=== PATIENT | male | born 1985 | race African-American/Black ===

== ENCOUNTER 2018-04-15 14:17 | Inpatient (IN) | payer OTHER ==
[2018-04-15] MEDS: LEVETIRACETAM 1000 MG (PMX) 100 ML IVPB (15:24)
[2018-04-15 15:27] LABS: ADD MAN DIFF? NO
[2018-04-15 15:31] LABS: ABNORMAL IP MESSAGE 1; BASOPHILS % 0.3 % (0.0-2.0); EOSINOPHILS # 0.1 10^3/ul (0.0-0.5); EOSINOPHILS % 1.7 % (0.0-7.0); HEMATOCRIT 39.9 % (42.0-52.0); HEMOGLOBIN 12.6 g/dl (14.0-18.0); LYMPHOCYTES # 1.2 10^3/ul (0.8-2.9); LYMPHOCYTES % 19.9 % (15.0-51.0); MEAN CORPUSCULAR HEMOGLOBIN 23.2 pg (29.0-33.0); MEAN CORPUSCULAR HGB CONC 31.6 g/dl (32.0-37.0); MEAN CORPUSCULAR VOLUME 73.5 fl (82.0-101.0); MONOCYTE # 0.7 10^3/ul (0.3-0.9); MONOCYTES % 11.8 % (0.0-11.0); NEUTROPHIL # 3.8 10^3/ul (1.6-7.5); NEUTROPHILS % 65.1 % (39.0-77.0); PLATELET COUNT 258 10^3/UL (140-415); POSITIVE DIFF @See below; RED BLOOD COUNT 5.43 10^6/ul (4.70-6.10); RED CELL DISTRIBUTION WIDTH 18.6 % (11.5-14.5)
[2018-04-15 15:31] LABS: WHITE BLOOD COUNT 5.9 10^3/ul (4.8-10.8)
[2018-04-15 15:36] LABS: INR 0.96; PARTIAL THROMBOPLASTIN TIME 27.4 Sec (23.0-35.0); PROTIME 12.9 Sec (11.9-14.9)
[2018-04-15 15:40] LABS: ALANINE AMINOTRANSFERASE 6 IU/L (13-69); ALBUMIN 4.1 g/dl (3.3-4.9); ALBUMIN/GLOBULIN RATIO 1.07; ALKALINE PHOSPHATASE 75 IU/L (42-121); ANION GAP 16 (5-13); ASPARTATE AMINO TRANSFERASE 39 IU/L (15-46); BLOOD UREA NITROGEN 42 mg/dl (7-20); CALCIUM 9.6 mg/dl (8.4-10.2); CARBON DIOXIDE 25 mmol/L (21-31); CHLORIDE 99 mmol/L (97-110); CREATININE 4.67 mg/dl (0.61-1.24); Estimated GFR 15 mL/min (>60); GLUCOSE 103 mg/dl (70-220); POTASSIUM 3.1 mmol/L (3.5-5.1); SODIUM 140 mmol/L (135-144); TOTAL PROTEIN 7.9 g/dl (6.1-8.1)
[2018-04-15 15:44] LABS: ETHANOL < 10.0 mg/dl (0-0)
[2018-04-15 15:52] LABS: TROPONIN-I 0.142 ng/ml (0.000-0.120)
[2018-04-15 16:01] LABS: AMPHETAMINE/METHAMPHETAMINE POSITIVE (NEGATIVE); BARBITURATES NEGATIVE (NEGATIVE); BENZODIAZEPINES NEGATIVE (NEGATIVE); CANNABINOIDS POSITIVE (NEGATIVE); COCAINE NEGATIVE (NEGATIVE); OPIATES NEGATIVE (NEGATIVE)
[2018-04-15] MEDS ORDERED: SOD CHLORIDE 0.9% 1,000 ML IV (18:46)
[2018-04-15] MEDS ORDERED: ACETAMINOPHEN 325 MG TAB PO (19:00)
[2018-04-15] MEDS ORDERED: ZOLPIDEM 5 MG TAB PO (19:00)
[2018-04-15] MEDS ORDERED: DOCUSATE SODIUM 100 MG CAP PO (19:00)
[2018-04-15] MEDS ORDERED: NACL 0.9% 3 ML SYG IV (19:00)
[2018-04-15] MEDS: ONDANSETRON 4 MG INJ IV (19:10)
[2018-04-15] MEDS: morphine 2 MG INJ IV (19:11)
[2018-04-15] MEDS: LORAZEPAM 2 MG INJ IV (19:30)
[2018-04-15] MEDS: POTASSIUM CHLORIDE 30 MEQ in SOD CHLORIDE 0.9% 1,000 ML IV (19:31)
[2018-04-15] MEDS ORDERED: hydrALAzine 20 MG INJ (20:53)
[2018-04-15] MEDS: hydrALAzine 20 MG INJ IV ×2 (20:57→23:47)
[2018-04-16] MEDS: LEVETIRACETAM 1000 MG (PMX) 100 ML IVPB ×3 (00:11→20:35)
[2018-04-16] MEDS: LABETALOL HCL 20MG INJ IV ×4 (00:39→10:37)
[2018-04-16] MEDS: HYDROCODONE/APAP (5/325) TAB PO ×3 (01:47→12:37)
[2018-04-16] MEDS: POTASSIUM CHLORIDE 30 MEQ in SOD CHLORIDE 0.9% 1,000 ML IV ×2 (05:09→15:28)
[2018-04-16 05:16] LABS: ADD MAN DIFF? NO
[2018-04-16 05:30] LABS: WHITE BLOOD COUNT 5.2 10^3/ul (4.8-10.8)
[2018-04-16 05:30] LABS: BASOPHILS % 0.2 % (0.0-2.0); EOSINOPHILS # 0.1 10^3/ul (0.0-0.5); EOSINOPHILS % 1.5 % (0.0-7.0); HEMATOCRIT 36.7 % (42.0-52.0); HEMOGLOBIN 11.8 g/dl (14.0-18.0); LYMPHOCYTES % 19.5 % (15.0-51.0); MEAN CORPUSCULAR HGB CONC 32.2 g/dl (32.0-37.0); MEAN CORPUSCULAR VOLUME 71.7 fl (82.0-101.0); MEAN PLATELET VOLUME 11.4 fl (7.4-10.4); MONOCYTE # 0.7 10^3/ul (0.3-0.9); MONOCYTES % 13.7 % (0.0-11.0); NEUTROPHIL # 3.3 10^3/ul (1.6-7.5); NEUTROPHILS % 64.7 % (39.0-77.0); PLATELET COUNT 247 10^3/UL (140-415); RED BLOOD COUNT 5.12 10^6/ul (4.70-6.10); RED CELL DISTRIBUTION WIDTH 17.7 % (11.5-14.5)
[2018-04-16] MEDS: hydrALAzine 20 MG INJ IV ×3 (05:45→18:38)
[2018-04-16 05:49] LABS: HEMOGLOBIN A1C 5.6 % (0-5.9)
[2018-04-16 06:01] LABS: TROPONIN-I 0.185 ng/ml (0.000-0.120)
[2018-04-16 06:03] LABS: ANION GAP 11 (5-13); BLOOD UREA NITROGEN 35 mg/dl (7-20); CALCIUM 8.9 mg/dl (8.4-10.2); CARBON DIOXIDE 28 mmol/L (21-31); CHLORIDE 102 mmol/L (97-110); CREATININE 3.49 mg/dl (0.61-1.24); Estimated GFR 25 mL/min (>60); GLUCOSE 103 mg/dl (70-220); MAGNESIUM 2.3 mg/dl (1.7-2.5); PHOSPHORUS 3.9 mg/dl (2.5-4.9); SODIUM 141 mmol/L (135-144)
[2018-04-16 06:05] LABS: IRON 25 ug/dl (35-150)
[2018-04-16 06:07] LABS: POTASSIUM 2.7 mmol/L (3.5-5.1)
[2018-04-16 06:15] LABS: % IRON SATURATION 9 % SAT (22-52); TOTAL IRON BINDING CAPACITY 281 ug/dl (241-421)
[2018-04-16] MEDS: POTASSIUM CHLORIDE 100 ML IVPB ×2 (06:25→08:25)
[2018-04-16] MEDS ORDERED: (Nursing Note) XX (07:30)
[2018-04-16] MEDS: AMLODIPINE 5 MG TAB PO (08:24)
[2018-04-16] MEDS: POTASSIUM CHLORIDE 20 MEQ POWDER FOR ORAL SOLN PO (08:24)
[2018-04-16] MEDS: MULTIVITAMINS 10 ML, FOLIC ACID 1 MG in SOD CHLORIDE 0.9% 1,000 ML IVPB (09:22)
[2018-04-16] MEDS: METOPROLOL 25 MG TAB PO ×2 (11:47→20:35)
[2018-04-16] MEDS: CHLORDIAZEPOXIDE 5 MG CAP PO ×2 (12:37→20:35)
[2018-04-16 13:22] LABS: POTASSIUM 3.1 mmol/L (3.5-5.1)
[2018-04-16] MEDS: POTASSIUM CHLORIDE (SR) 20 MEQ TAB PO ×2 (14:15→16:11)
[2018-04-16 20:27] LABS: POTASSIUM 3.2 mmol/L (3.5-5.1)
[2018-04-17] MEDS: POTASSIUM CHLORIDE 30 MEQ in SOD CHLORIDE 0.9% 1,000 ML IV ×2 (01:30→10:53)
[2018-04-17] MEDS: hydrALAzine 20 MG INJ IV ×2 (05:49→13:11)
[2018-04-17 05:59] LABS: ADD MAN DIFF? NO
[2018-04-17 06:02] LABS: ABNORMAL IP MESSAGE 1; BASOPHILS % 0.7 % (0.0-2.0); EOSINOPHILS # 0.1 10^3/ul (0.0-0.5); EOSINOPHILS % 3.1 % (0.0-7.0); HEMATOCRIT 35.6 % (42.0-52.0); HEMOGLOBIN 11.3 g/dl (14.0-18.0); LYMPHOCYTES # 1.2 10^3/ul (0.8-2.9); LYMPHOCYTES % 28.5 % (15.0-51.0); MEAN CORPUSCULAR HGB CONC 31.7 g/dl (32.0-37.0); MEAN CORPUSCULAR VOLUME 72.5 fl (82.0-101.0); MEAN PLATELET VOLUME 10.6 fl (7.4-10.4); MONOCYTE # 0.7 10^3/ul (0.3-0.9); MONOCYTES % 15.3 % (0.0-11.0); NEUTROPHIL # 2.2 10^3/ul (1.6-7.5); NEUTROPHILS % 52.4 % (39.0-77.0); PLATELET COUNT 228 10^3/UL (140-415); POSITIVE DIFF @See below; RED BLOOD COUNT 4.91 10^6/ul (4.70-6.10); RED CELL DISTRIBUTION WIDTH 18.3 % (11.5-14.5)
[2018-04-17 06:02] LABS: WHITE BLOOD COUNT 4.2 10^3/ul (4.8-10.8)
[2018-04-17 06:24] LABS: ANION GAP 7 (5-13); BLOOD UREA NITROGEN 33 mg/dl (7-20); CALCIUM 8.9 mg/dl (8.4-10.2); CARBON DIOXIDE 26 mmol/L (21-31); CHLORIDE 104 mmol/L (97-110); CREATININE 3.48 mg/dl (0.61-1.24); Estimated GFR 25 mL/min (>60); GLUCOSE 87 mg/dl (70-220); MAGNESIUM 2.2 mg/dl (1.7-2.5); POTASSIUM 3.3 mmol/L (3.5-5.1); SODIUM 137 mmol/L (135-144)
[2018-04-17] MEDS: CHLORDIAZEPOXIDE 5 MG CAP PO ×2 (08:00→13:02)
[2018-04-17] MEDS: AMLODIPINE 5 MG TAB PO ×2 (08:00→11:44)
[2018-04-17] MEDS: METOPROLOL 25 MG TAB PO (08:00)
[2018-04-17] MEDS: LEVETIRACETAM 1000 MG (PMX) 100 ML IVPB (08:02)
[2018-04-17] MEDS: INFLUENZA VIRUS VACCINE 0.5 ML (DISPENSING) IM* (09:05)
[2018-04-17] MEDS: MULTIVITAMINS 10 ML, FOLIC ACID 1 MG in SOD CHLORIDE 0.9% 1,000 ML IVPB (09:52)
[2018-04-17] MEDS: POTASSIUM CHLORIDE (SR) 20 MEQ TAB PO (10:20)
== END 2018-04-17 15:25 | disposition home or self-care (01) | DRG 64 ==
LOC: E/R 14:17 → ICU 17:37 → 6WM 04-16 21:39
PROVIDERS: Internal Medicine
DX: I61.1 Nontraumatic intracerebral hemorrhage in hemisphere, cortical (principal); I21.4 Non-ST elevation (NSTEMI) myocardial infarction; Q04.8 Other specified congenital malformations of brain; R56.9 Unspecified convulsions; F10.10 Alcohol abuse, uncomplicated; D50.9 Iron deficiency anemia, unspecified; E87.6 Hypokalemia; I10 Essential (primary) hypertension
CPT/HCPCS: 36415; 70450; 70553; 71045; 80048; 80053; 80307; 82962; 83036; 83540; 83735; 84100; 84132; 84484; 85025; 85610; 85730; 87081; 90686; 93005; 96374; 99291-25

== ENCOUNTER 2018-04-25 12:26 | Emergency (ER) | payer OTHER ==
[2018-04-25 13:15] LABS: ADD MAN DIFF? NO
[2018-04-25 13:19] LABS: WHITE BLOOD COUNT 6.1 10^3/ul (4.8-10.8)
[2018-04-25 13:19] LABS: ABNORMAL IP MESSAGE 1; BASOPHILS % 0.3 % (0.0-2.0); EOSINOPHILS % 0.7 % (0.0-7.0); HEMATOCRIT 40.3 % (42.0-52.0); HEMOGLOBIN 12.8 g/dl (14.0-18.0); LYMPHOCYTES # 1.3 10^3/ul (0.8-2.9); LYMPHOCYTES % 21.2 % (15.0-51.0); MEAN CORPUSCULAR HGB CONC 31.8 g/dl (32.0-37.0); MEAN CORPUSCULAR VOLUME 72.5 fl (82.0-101.0); MEAN PLATELET VOLUME 11.2 fl (7.4-10.4); MONOCYTE # 0.7 10^3/ul (0.3-0.9); MONOCYTES % 11.3 % (0.0-11.0); NEUTROPHILS % 66.3 % (39.0-77.0); PLATELET COUNT 234 10^3/UL (140-415); POSITIVE DIFF @See below; RED BLOOD COUNT 5.56 10^6/ul (4.70-6.10); RED CELL DISTRIBUTION WIDTH 18.2 % (11.5-14.5)
[2018-04-25 13:35] LABS: ALANINE AMINOTRANSFERASE 12 IU/L (13-69); ALBUMIN/GLOBULIN RATIO 1.05; ALKALINE PHOSPHATASE 91 IU/L (42-121); ANION GAP 10 (5-13); ASPARTATE AMINO TRANSFERASE 24 IU/L (15-46); BILIRUBIN,INDIRECT 0.1 mg/dl (0-1.1); BILIRUBIN,TOTAL 0.1 mg/dl (0.2-1.3); BLOOD UREA NITROGEN 27 mg/dl (7-20); CALCIUM 9.4 mg/dl (8.4-10.2); CARBON DIOXIDE 31 mmol/L (21-31); CHLORIDE 98 mmol/L (97-110); CREATININE 3.94 mg/dl (0.61-1.24); Estimated GFR 22 mL/min (>60); GLUCOSE 106 mg/dl (70-220); LIPASE 80 U/L (23-300); SODIUM 139 mmol/L (135-144); TOTAL PROTEIN 7.8 g/dl (6.1-8.1)
[2018-04-25 13:38] LABS: POTASSIUM 2.9 mmol/L (3.5-5.1)
[2018-04-25 13:46] LABS: TROPONIN-I 0.111 ng/ml (0.000-0.120)
[2018-04-25] MEDS: POTASSIUM CHLORIDE (SR) 20 MEQ TAB PO (14:51)
[2018-04-25] MEDS: ACETAMINOPHEN 500 MG TAB PO (14:51)
[2018-04-25 16:07] LABS: TROPONIN-I 0.099 ng/ml (0.000-0.120)
== END 2018-04-25 17:40 | disposition home or self-care (01) ==
LOC: E/R 12:26
DX: R51 Headache (principal); N18.3 Chronic kidney disease, stage 3 (moderate); I50.9 Heart failure, unspecified; I11.0 Hypertensive heart disease with heart failure; I12.9 Hypertensive chronic kidney disease with stage 1 through stage 4 chronic kidney disease, or unspecified chronic kidney disease; Z79.82 Long term (current) use of aspirin
CPT/HCPCS: 80053; 83690; 84484; 85025; 93005; 99284-25

== ENCOUNTER 2018-07-28 12:19 | Emergency (ER) | payer SELFPAY, OTHER | END 2018-07-28 16:50 | disposition left against medical advice (07) | LOC: E/R 12:19 | DX: Z53.21 Procedure and treatment not carried out due to patient leaving prior to being seen by health care provider (principal) | CPT/HCPCS: 93005 ==

== ENCOUNTER 2018-08-13 21:11 | Inpatient (IN) | payer OTHER ==
[2018-08-13 21:54] LABS: ABNORMAL IP MESSAGE 1; HEMATOCRIT 35.8 % (42.0-52.0); HEMOGLOBIN 11.3 g/dl (14.0-18.0); MEAN CORPUSCULAR HEMOGLOBIN 23.5 pg (29.0-33.0); MEAN CORPUSCULAR HGB CONC 31.6 g/dl (32.0-37.0); MEAN CORPUSCULAR VOLUME 74.4 fl (82.0-101.0); MEAN PLATELET VOLUME 11.7 fl (7.4-10.4); PLATELET COUNT 176 10^3/UL (140-415); POSITIVE DIFF @See below; RED BLOOD COUNT 4.81 10^6/ul (4.70-6.10)
[2018-08-13 21:54] LABS: WHITE BLOOD COUNT 4.2 10^3/ul (4.8-10.8)
[2018-08-13] MEDS: morphine 4 MG/ML VIAL IV (21:54)
[2018-08-13] MEDS: NICARDipine HCL 30 MG CAPSULE PO (21:54)
[2018-08-13] MEDS: hydrALAzine 20 MG INJ IV (21:55)
[2018-08-13] MEDS: LEVETIRACETAM 1000 MG (PMX) 100 ML IVPB (21:55)
[2018-08-13] MEDS: ONDANSETRON 4 MG INJ IV ×2 (21:56→23:46)
[2018-08-13] MEDS: SOD CHLORIDE 0.9% 500 ML IV (21:56)
[2018-08-13 21:57] LABS: INR 0.89; PROTIME 12.1 Sec (11.9-14.9); PT RATIO 0.9
[2018-08-13 21:58] LABS: PARTIAL THROMBOPLASTIN TIME 26.1 Sec (23.0-35.0)
[2018-08-13 22:01] LABS: ALANINE AMINOTRANSFERASE 17 IU/L (13-69); ALBUMIN 3.7 g/dl (3.3-4.9); ALBUMIN/GLOBULIN RATIO 1.19; ALKALINE PHOSPHATASE 60 IU/L (42-121); ANION GAP 7 (5-13); ASPARTATE AMINO TRANSFERASE 27 IU/L (15-46); BILIRUBIN,INDIRECT 0.3 mg/dl (0-1.1); BILIRUBIN,TOTAL 0.3 mg/dl (0.2-1.3); BLOOD UREA NITROGEN 39 mg/dl (7-20); CARBON DIOXIDE 30 mmol/L (21-31); CHLORIDE 102 mmol/L (97-110); CREATININE 5.08 mg/dl (0.61-1.24); Estimated GFR 16 mL/min (>60); GLUCOSE 149 mg/dl (70-220); SODIUM 139 mmol/L (135-144); TOTAL PROTEIN 6.8 g/dl (6.1-8.1)
[2018-08-13 22:05] LABS: ADD MAN DIFF? YES
[2018-08-13 22:13] LABS: B-TYPE NATRIURETIC PEPTIDE 25100 PG/ML (0-125)
[2018-08-13 22:20] LABS: TROPONIN-I 0.154 ng/ml (0.000-0.120)
[2018-08-13] MEDS: ASPIRIN 325 MG TAB PO (22:32)
[2018-08-13] MEDS: ENOXAPARIN 100 MG/ML SYG SC (22:33)
[2018-08-13] MEDS: NITROGLYCERIN 2% 1 GM OINT PKT TD (22:33)
[2018-08-13 23:23] LABS: BASOPHILS % (M) 1 % (0-2); GIANT THROMBO% (M) 4 % (0-0); LYMPHOCYTES #M 1.8 10^3/ul (0.8-2.9); LYMPHOCYTES % (M) 45 % (15-51); MONOCYTE #M 0.5 10^3/ul (0.3-0.9); MONOCYTES % (M) 12 % (0-11); PLATELET ESTIMATE NORMAL; POLYCHROMASIA 1+ (0-0); SEGMENTED NEUTROPHILS (M) % 42 % (39-77); SMUDGE%M 40 % (0-0)
[2018-08-13] MEDS: HYDROmorphONE 1 MG/ML SYG IV (23:46)
[2018-08-14] MEDS ORDERED: NITROGLYCERIN (SL) 0.4 MG TAB SL (00:30)
[2018-08-14] MEDS ORDERED: ONDANSETRON 4 MG INJ IV ×2 (00:30)
[2018-08-14] MEDS ORDERED: LORAZEPAM 2 MG INJ IV (00:30)
[2018-08-14] MEDS ORDERED: BISACODYL (EC) 5 MG TAB PO (00:30)
[2018-08-14] MEDS ORDERED: NITROGLYCERIN 2% 1 GM OINT PKT TD (00:30)
[2018-08-14] MEDS ORDERED: DOCUSATE SODIUM 100 MG CAP PO (00:30)
[2018-08-14] MEDS ORDERED: NACL 0.9% 3 ML SYG IV (00:30)
[2018-08-14] MEDS ORDERED: ACETAMINOPHEN 325 MG TAB PO ×2 (00:30)
[2018-08-14] MEDS: POTASSIUM CHLORIDE (SR) 20 MEQ TAB PO ×2 (01:10→09:26)
[2018-08-14] MEDS: hydrALAzine 20 MG INJ IV ×2 (01:10)
[2018-08-14 01:40] LABS: CREATINE KINASE 374 IU/L (23-200)
[2018-08-14 01:53] LABS: CK INDEX 0.4; CK-MB 1.36 ng/ml (0.0-2.4)
[2018-08-14 02:04] LABS: TROPONIN-I 0.159 ng/ml (0.000-0.120)
[2018-08-14 02:13] LABS: ETHANOL < 10.0 mg/dl (0-0)
[2018-08-14] MEDS: SOD CHLORIDE 0.9% 1,000 ML IV ×2 (03:06→16:52)
[2018-08-14] MEDS: morphine 2 MG INJ IV ×2 (05:15→09:29)
[2018-08-14 06:45] LABS: CREATINE KINASE 340 IU/L (23-200)
[2018-08-14 06:52] LABS: CK INDEX 0.4; CK-MB 1.52 ng/ml (0.0-2.4)
[2018-08-14 06:56] LABS: TROPONIN-I 0.166 ng/ml (0.000-0.120)
[2018-08-14 06:59] LABS: IRON 27 ug/dl (35-150)
[2018-08-14 07:08] LABS: % IRON SATURATION 12 % SAT (22-52); TOTAL IRON BINDING CAPACITY 232 ug/dl (241-421)
[2018-08-14 07:23] LABS: VALPROATE < 10 ug/ml (50-100)
[2018-08-14 07:39] LABS: UR RBC 3 /HPF (0-5); UR WBC 1 /HPF (0-5)
[2018-08-14 08:09] LABS: CREATININE,URINE RANDOM 46.95 mg/dl (20-370); PROTEIN/CREAT RATIO 3.98 RATIO
[2018-08-14 08:19] LABS: AMPHETAMINE/METHAMPHETAMINE Negative (NEGATIVE); BARBITURATES Negative (NEGATIVE); BENZODIAZEPINES Negative (NEGATIVE); CANNABINOIDS Positive (NEGATIVE); COCAINE Negative (NEGATIVE); OPIATES Positive (NEGATIVE)
[2018-08-14 08:20] LABS: SODIUM,URINE RANDOM 110 mmol/L (30-90)
[2018-08-14 08:26] LABS: SODIUM,URINE RANDOM 110 mmol/L (30-90)
[2018-08-14 08:26] LABS: CREATININE,URINE RANDOM 46.48 mg/dl (20-370)
[2018-08-14] MEDS ORDERED: FUROSEMIDE 40 MG TAB PO (09:00)
[2018-08-14 09:19] LABS: FERRITIN 21.2 ng/ml (17.9-464.0)
[2018-08-14] MEDS: AMLODIPINE 5 MG TAB PO ×2 (09:25→20:11)
[2018-08-14] MEDS: MULTIVIT/CA CARB/B CMPLX/FA TAB PO (09:25)
[2018-08-14] MEDS: LEVETIRACETAM 500 MG TAB PO ×2 (09:25→20:10)
[2018-08-14] MEDS: POTASSIUM CHLORIDE (SR) 10 MEQ TAB PO (09:26)
[2018-08-14] MEDS: FUROSEMIDE 40 MG INJ IV (09:27)
[2018-08-14 10:54] LABS: CREATINE KINASE 355 IU/L (23-200)
[2018-08-14 11:04] LABS: CK INDEX 0.5; CK-MB 1.84 ng/ml (0.0-2.4)
[2018-08-14 11:12] LABS: TROPONIN-I 0.167 ng/ml (0.000-0.120)
[2018-08-14 11:43] LABS: ADD UMIC YES; UR ASCORBIC ACID NEGATIVE (NEGATIVE); UR BILIRUBIN (Dip) NEGATIVE (NEGATIVE); UR BLOOD (Dip) NEGATIVE (NEGATIVE); UR CLARITY CLEAR (CLEAR); UR COLOR COLORLESS (YELLOW); UR GLUCOSE (Dip) NEGATIVE (NEGATIVE); UR KETONES (Dip) NEGATIVE (NEGATIVE); UR LEUKOCYTE ESTERASE (Dip) NEGATIVE Leu/ul (NEGATIVE); UR NITRITE (Dip) NEGATIVE (NEGATIVE); UR RBC 1 /HPF (0-5); UR SPECIFIC GRAVITY (Dip) 1.009 (1.003-1.030); UR TOTAL PROTEIN (Dip) 2+ mg/dl (NEGATIVE); UR UROBILINOGEN (Dip) NEGATIVE (NEGATIVE); UR WBC 3 /HPF (0-5)
[2018-08-14 13:32] LABS: ANION GAP 7 (5-13); BLOOD UREA NITROGEN 36 mg/dl (7-20); CALCIUM 9.1 mg/dl (8.4-10.2); CARBON DIOXIDE 27 mmol/L (21-31); CHLORIDE 105 mmol/L (97-110); CREATININE 4.57 mg/dl (0.61-1.24); Estimated GFR 18 mL/min (>60); GLUCOSE 98 mg/dl (70-220); POTASSIUM 3.1 mmol/L (3.5-5.1); SODIUM 139 mmol/L (135-144)
[2018-08-14] MEDS: HYDROCODONE/APAP (5/325) TAB PO ×3 (14:40→23:11)
[2018-08-14] MEDS: ATORVASTATIN 40 MG TAB PO (20:10)
[2018-08-14] MEDS ORDERED: LEVETIRACETAM 250 MG TAB PO (21:00)
[2018-08-14] MEDS ORDERED: HYDROCODONE/APAP (5/325) TAB PO (23:30)
[2018-08-15] MEDS: morphine 2 MG INJ IV (04:48)
[2018-08-15 06:12] LABS: ADD MAN DIFF? NO
[2018-08-15 06:19] LABS: ABNORMAL IP MESSAGE 1; BASOPHILS % 0.5 % (0.0-2.0); EOSINOPHILS # 0.1 10^3/ul (0.0-0.5); EOSINOPHILS % 2.3 % (0.0-7.0); HEMATOCRIT 33.8 % (42.0-52.0); HEMOGLOBIN 10.7 g/dl (14.0-18.0); LYMPHOCYTES # 1.4 10^3/ul (0.8-2.9); LYMPHOCYTES % 34.7 % (15.0-51.0); MEAN CORPUSCULAR HEMOGLOBIN 23.4 pg (29.0-33.0); MEAN CORPUSCULAR HGB CONC 31.7 g/dl (32.0-37.0); MEAN CORPUSCULAR VOLUME 73.8 fl (82.0-101.0); MEAN PLATELET VOLUME 12.6 fl (7.4-10.4); MONOCYTE # 0.6 10^3/ul (0.3-0.9); MONOCYTES % 13.9 % (0.0-11.0); NEUTROPHIL # 1.9 10^3/ul (1.6-7.5); NEUTROPHILS % 48.3 % (39.0-77.0); PLATELET COUNT 182 10^3/UL (140-415); POSITIVE DIFF @See below; RED BLOOD COUNT 4.58 10^6/ul (4.70-6.10); RED CELL DISTRIBUTION WIDTH 18.1 % (11.5-14.5)
[2018-08-15] MEDS: HYDROCODONE/APAP (5/325) TAB PO ×2 (06:53→22:25)
[2018-08-15 06:56] LABS: ANION GAP 7 (5-13); BLOOD UREA NITROGEN 30 mg/dl (7-20); CARBON DIOXIDE 29 mmol/L (21-31); CHLORIDE 103 mmol/L (97-110); CREATININE 4.41 mg/dl (0.61-1.24); Estimated GFR 19 mL/min (>60); GLUCOSE 88 mg/dl (70-220); PHOSPHORUS 3.6 mg/dl (2.5-4.9); SODIUM 139 mmol/L (135-144)
[2018-08-15 06:57] LABS: CHOL/HDL RATIO 1.9 RATIO; CHOLESTEROL 167 mg/dl (100-200); HDL CHOLESTEROL 85 mg/dl (28-63); LDL CHOLESTEROL,CALCULATED 68 mg/dl; TRIGLYCERIDES 68 mg/dl (0-149)
[2018-08-15 07:02] LABS: HEMOGLOBIN A1C 5.5 % (0-5.9)
[2018-08-15 07:17] LABS: POTASSIUM 2.9 mmol/L (3.5-5.1)
[2018-08-15] MEDS: POTASSIUM CHLORIDE (SR) 20 MEQ TAB PO (09:20)
[2018-08-15] MEDS: LEVETIRACETAM 500 MG TAB PO ×2 (09:21→21:00)
[2018-08-15] MEDS: MULTIVIT/CA CARB/B CMPLX/FA TAB PO (09:21)
[2018-08-15] MEDS: AMLODIPINE 5 MG TAB PO ×2 (09:21→20:59)
[2018-08-15] MEDS: POTASSIUM CHLORIDE (SR) 10 MEQ TAB PO (09:21)
[2018-08-15] MEDS ORDERED: LOSARTAN 50 MG TAB PO (10:00)
[2018-08-15 10:51] LABS: HAAIG REFLEX REFLEX FILED
[2018-08-15 11:30] LABS: COMPLEMENT C3 106 mg/dl (88-165); COMPLEMENT C4 49 mg/dl (14-44)
[2018-08-15 11:50] LABS: HEPATITIS B SURFACE ANTIGEN NEGATIVE (NEGATIVE)
[2018-08-15 12:07] LABS: HEPATITIS B CORE ANTIBODY NEGATIVE (NEGATIVE); HEPATITIS C VIRAL ANTIBODY NEGATIVE (NEGATIVE)
[2018-08-15 15:17] LABS: CREATININE, RANDOM URINE 34 mg/dL (20-320); MICROALBUMIN 41.6 mg/dL; MICROALBUMIN/CREATININE RATIO 1224 (<30)
[2018-08-15 17:48] LABS: RHEUMATOID FACTOR NEGATIVE (NEGATIVE)
[2018-08-15] MEDS: ATORVASTATIN 40 MG TAB PO (20:58)
[2018-08-16 06:48] LABS: ADD MAN DIFF? NO
[2018-08-16 06:50] LABS: ABNORMAL IP MESSAGE 1; BASOPHILS % 0.6 % (0.0-2.0); EOSINOPHILS # 0.1 10^3/ul (0.0-0.5); EOSINOPHILS % 2.3 % (0.0-7.0); HEMATOCRIT 33.7 % (42.0-52.0); HEMOGLOBIN 10.8 g/dl (14.0-18.0); LYMPHOCYTES # 1.2 10^3/ul (0.8-2.9); LYMPHOCYTES % 38.6 % (15.0-51.0); MEAN CORPUSCULAR HEMOGLOBIN 23.7 pg (29.0-33.0); MEAN CORPUSCULAR VOLUME 73.9 fl (82.0-101.0); MEAN PLATELET VOLUME 11.2 fl (7.4-10.4); MONOCYTE # 0.5 10^3/ul (0.3-0.9); MONOCYTES % 15.3 % (0.0-11.0); NEUTROPHIL # 1.3 10^3/ul (1.6-7.5); NEUTROPHILS % 42.9 % (39.0-77.0); PLATELET COUNT 166 10^3/UL (140-415); POSITIVE DIFF @See below; RED BLOOD COUNT 4.56 10^6/ul (4.70-6.10)
[2018-08-16 06:50] LABS: WHITE BLOOD COUNT 3.1 10^3/ul (4.8-10.8)
[2018-08-16 07:16] LABS: ANION GAP 5 (5-13); BLOOD UREA NITROGEN 33 mg/dl (7-20); CALCIUM 8.8 mg/dl (8.4-10.2); CARBON DIOXIDE 28 mmol/L (21-31); CHLORIDE 103 mmol/L (97-110); CREATININE 4.49 mg/dl (0.61-1.24); Estimated GFR 19 mL/min (>60); GLUCOSE 106 mg/dl (70-220); MAGNESIUM 2.1 mg/dl (1.7-2.5); PHOSPHORUS 3.8 mg/dl (2.5-4.9); POTASSIUM 3.3 mmol/L (3.5-5.1); SODIUM 136 mmol/L (135-144)
[2018-08-16] MEDS: LEVETIRACETAM 500 MG TAB PO (08:08)
[2018-08-16] MEDS: POTASSIUM CHLORIDE (SR) 10 MEQ TAB PO (08:09)
[2018-08-16] MEDS: MULTIVIT/CA CARB/B CMPLX/FA TAB PO (08:09)
[2018-08-16] MEDS: AMLODIPINE 5 MG TAB PO (08:09)
[2018-08-16] MEDS: SPIRONOLACTONE 25 MG TAB PO (09:06)
[2018-08-16 11:21] LABS: MYELOPEROXIDASE ANTIBODY <1.0 AI; PROTEINASE-3 ANTIBODY <1.0 AI
[2018-08-16 12:56] LABS: LEVETIRACETAM 11.1 mcg/mL
[2018-08-16 13:42] LABS: ANA SCREEN NEGATIVE (NEGATIVE)
[2018-08-16 14:31] LABS: ANCA SCREEN NEGATIVE (NEGATIVE)
[2018-08-16 15:16] LABS: ALBUMIN 3.1 g/dL (3.8-4.8); ALPHA-1-GLOBULINS 0.4 g/dL (0.2-0.3); ALPHA-2-GLOBULINS 0.9 g/dL (0.5-0.9); BETA 2 GLOBULINS 0.4 g/dL (0.2-0.5); BETA GLOBULINS 0.3 g/dL (0.4-0.6)
[2018-08-18 15:26] LABS: CREATININE, RANDOM URINE 94 mg/dL (20-320); PROTEIN/CREATININE RATIO 2989 mg/g creat (22-128)
[2018-08-19 13:27] LABS: ALDOSTERONE 16 ng/dL
[2018-08-19 18:56] LABS: RENIN, PLASMA 1.26 ng/mL/h (0.25-5.82)
[2018-08-20 21:33] LABS: ANTI-DNA (DOUBLE STRANDED) 133 U/mL (< 301)
== END 2018-08-16 12:15 | disposition home or self-care (01) | DRG 281 ==
LOC: E/R 21:11 → TEL 23:53
PROVIDERS: Family Medicine
DX: I13.0 Hypertensive heart and chronic kidney disease with heart failure and stage 1 through stage 4 chronic kidney disease, or unspecified chronic kidney disease (principal); I21.A1 Myocardial infarction type 2; N17.9 Acute kidney failure, unspecified; R56.9 Unspecified convulsions; I16.0 Hypertensive urgency; N18.9 Chronic kidney disease, unspecified; I50.9 Heart failure, unspecified
CPT/HCPCS: 36415; 70450; 71045; 76775; 80048; 80053; 80061; 80164; 80177; 80307; 81001; 81003; 82043; 82088; 82550; 82553; 82570; 82595; 82728; 82962; 83036; 83540; 83735; 83880; 84100; 84155; 84156; 84165; 84166; 84244; 84300; 84443; 84484; 85025; 85610; 85730; 86021; 86038; 86160; 86226; 86320; 86325; 86430; 86704; 86709; 86803; 87340; 93005; 93306; 96372; 96374; 96375; 97161; 97166; 99285-25

== ENCOUNTER 2018-08-18 10:30 | Emergency (ER) | payer OTHER ==
[2018-08-18 12:19] LABS: ADD MAN DIFF? NO
[2018-08-18 12:24] LABS: WHITE BLOOD COUNT 3.9 10^3/ul (4.8-10.8)
[2018-08-18 12:24] LABS: ABNORMAL IP MESSAGE 1; BASOPHILS % 0.5 % (0.0-2.0); EOSINOPHILS # 0.1 10^3/ul (0.0-0.5); EOSINOPHILS % 1.6 % (0.0-7.0); HEMATOCRIT 38.1 % (42.0-52.0); LYMPHOCYTES % 24.8 % (15.0-51.0); MEAN CORPUSCULAR HEMOGLOBIN 23.5 pg (29.0-33.0); MEAN CORPUSCULAR HGB CONC 31.5 g/dl (32.0-37.0); MEAN CORPUSCULAR VOLUME 74.6 fl (82.0-101.0); MEAN PLATELET VOLUME 11.1 fl (7.4-10.4); MONOCYTE # 0.8 10^3/ul (0.3-0.9); MONOCYTES % 20.9 % (0.0-11.0); NEUTROPHILS % 51.9 % (39.0-77.0); PLATELET COUNT 167 10^3/UL (140-415); POSITIVE DIFF @See below; RED BLOOD COUNT 5.11 10^6/ul (4.70-6.10); RED CELL DISTRIBUTION WIDTH 17.7 % (11.5-14.5)
[2018-08-18] MEDS: ENALAPRILAT 1.25 MG INJ IV (12:52)
[2018-08-18] MEDS: FUROSEMIDE 40 MG INJ IV (12:52)
[2018-08-18 12:55] LABS: ALANINE AMINOTRANSFERASE 15 IU/L (13-69); ALBUMIN 4.2 g/dl (3.3-4.9); ALBUMIN/GLOBULIN RATIO 1.07; ALKALINE PHOSPHATASE 72 IU/L (42-121); ANION GAP 10 (5-13); ASPARTATE AMINO TRANSFERASE 22 IU/L (15-46); BILIRUBIN,INDIRECT 0.3 mg/dl (0-1.1); BILIRUBIN,TOTAL 0.3 mg/dl (0.2-1.3); BLOOD UREA NITROGEN 34 mg/dl (7-20); CALCIUM 9.8 mg/dl (8.4-10.2); CARBON DIOXIDE 28 mmol/L (21-31); CHLORIDE 104 mmol/L (97-110); CREATININE 5.03 mg/dl (0.61-1.24); Estimated GFR 16 mL/min (>60); GLUCOSE 91 mg/dl (70-220); LIPASE 59 U/L (23-300); POTASSIUM 3.8 mmol/L (3.5-5.1); SODIUM 142 mmol/L (135-144); TOTAL PROTEIN 8.1 g/dl (6.1-8.1)
[2018-08-18 13:05] LABS: B-TYPE NATRIURETIC PEPTIDE 9900 PG/ML (0-125); TROPONIN-I 0.102 ng/ml (0.000-0.120)
[2018-08-18] MEDS: NITROGLYCERIN (SL) 0.4 MG TAB SL (13:50)
== END 2018-08-18 15:05 | disposition home or self-care (01) ==
LOC: E/R 10:30
DX: I50.43 Acute on chronic combined systolic (congestive) and diastolic (congestive) heart failure (principal); I12.9 Hypertensive chronic kidney disease with stage 1 through stage 4 chronic kidney disease, or unspecified chronic kidney disease; N18.9 Chronic kidney disease, unspecified; Z87.891 Personal history of nicotine dependence
CPT/HCPCS: 36415; 71045; 80053; 83690; 83880; 84484; 85025; 93005; 96374; 96375; 99285-25

== ENCOUNTER 2018-08-21 00:11 | Emergency (ER) | payer OTHER ==
[2018-08-21] MEDS: ACETAMINOPHEN 500 MG TAB PO (03:07)
[2018-08-21] MEDS: IPRATROPIUM (NEB) 0.5 MG/2.5 ML AMP NEB (03:10)
[2018-08-21] MEDS: ALBUTEROL 0.083% (NEB) 2.5 MG/3 ML AMP NEB (03:11)
[2018-08-21] MEDS ORDERED: HYDROCODONE/APAP (5/325) TAB PO (04:00)
== END 2018-08-21 04:15 | disposition home or self-care (01) ==
LOC: FTE 00:11
DX: J40 Bronchitis, not specified as acute or chronic (principal); I13.0 Hypertensive heart and chronic kidney disease with heart failure and stage 1 through stage 4 chronic kidney disease, or unspecified chronic kidney disease; I50.9 Heart failure, unspecified; N18.9 Chronic kidney disease, unspecified; F17.210 Nicotine dependence, cigarettes, uncomplicated
CPT/HCPCS: 94664; 99284-25

== ENCOUNTER 2018-11-12 15:52 | Inpatient (IN) | payer OTHER ==
[2018-11-12 16:21] LABS: ADD MAN DIFF? NO
[2018-11-12 16:36] LABS: WHITE BLOOD COUNT 4.4 10^3/ul (4.8-10.8)
[2018-11-12 16:36] LABS: BASOPHILS % 0.5 % (0.0-2.0); EOSINOPHILS # 0.1 10^3/ul (0.0-0.5); EOSINOPHILS % 1.8 % (0.0-7.0); HEMATOCRIT 35.2 % (42.0-52.0); HEMOGLOBIN 11.4 g/dl (14.0-18.0); LYMPHOCYTES # 1.4 10^3/ul (0.8-2.9); LYMPHOCYTES % 32.4 % (15.0-51.0); MEAN CORPUSCULAR HEMOGLOBIN 25.4 pg (29.0-33.0); MEAN CORPUSCULAR HGB CONC 32.4 g/dl (32.0-37.0); MEAN CORPUSCULAR VOLUME 78.6 fl (82.0-101.0); MEAN PLATELET VOLUME 11.7 fl (7.4-10.4); MONOCYTE # 0.7 10^3/ul (0.3-0.9); MONOCYTES % 14.9 % (0.0-11.0); NEUTROPHIL # 2.2 10^3/ul (1.6-7.5); NEUTROPHILS % 50.2 % (39.0-77.0); PLATELET COUNT 191 10^3/UL (140-415); RED BLOOD COUNT 4.48 10^6/ul (4.70-6.10)
[2018-11-12 16:44] LABS: ANION GAP 6 (5-13); BLOOD UREA NITROGEN 41 mg/dl (7-20); CALCIUM 8.8 mg/dl (8.4-10.2); CARBON DIOXIDE 29 mmol/L (21-31); CHLORIDE 103 mmol/L (97-110); Estimated GFR 16 mL/min (>60); GLUCOSE 94 mg/dl (70-220); POTASSIUM 3.2 mmol/L (3.5-5.1); SODIUM 138 mmol/L (135-144)
[2018-11-12] MEDS: ASPIRIN 81 MG TAB PO (16:45)
[2018-11-12] MEDS: NITROGLYCERIN (SL) 0.4 MG TAB SL (16:45)
[2018-11-12] MEDS: SOD CHLORIDE 0.9% 500 ML IV (16:46)
[2018-11-12] MEDS: NICARDipine HCL 30 MG CAPSULE PO (16:46)
[2018-11-12 17:01] LABS: B-TYPE NATRIURETIC PEPTIDE 17700 PG/ML (0-125)
[2018-11-12 17:03] LABS: TROPONIN-I 0.124 ng/ml (0.000-0.120)
[2018-11-12] MEDS: FUROSEMIDE 40 MG INJ IV (17:12)
[2018-11-12] MEDS: niCARdipine-NS 0.1MG/ML DRIP 200 ML IV (17:23)
[2018-11-12] MEDS ORDERED: ALBUTEROL/IPRATROPIUM (NEB) 3 ML AMP HHN (18:30)
[2018-11-12] MEDS ORDERED: LORAZEPAM 2 MG INJ IV (18:30)
[2018-11-12] MEDS ORDERED: ONDANSETRON 4 MG INJ IV (18:30)
[2018-11-12] MEDS ORDERED: NACL 0.9% 3 ML SYG IV (18:30)
[2018-11-12] MEDS ORDERED: MAGNESIUM HYDROXIDE 30ML CUP PO (18:30)
[2018-11-12] MEDS ORDERED: DOCUSATE SODIUM 100 MG CAP PO (18:30)
[2018-11-12] MEDS ORDERED: NITROGLYCERIN (SL) 0.4 MG TAB SL (18:30)
[2018-11-12] MEDS ORDERED: IBUPROFEN 600 MG TAB (18:33)
[2018-11-12] MEDS: IBUPROFEN 600 MG TAB PO (18:51)
[2018-11-12] MEDS: SOD CHLORIDE 0.45% 1,000 ML IV (19:24)
[2018-11-12 19:50] LABS: CREATINE KINASE 270 IU/L (23-200)
[2018-11-12 20:03] LABS: CK INDEX 0.5; CK-MB 1.44 ng/ml (0.0-2.4); TROPONIN-I 0.131 ng/ml (0.000-0.120)
[2018-11-12 20:07] LABS: FREE T4 (FREE THYROXINE) 1.84 ng/dl (0.79-2.35)
[2018-11-12] MEDS: ENOXAPARIN 80 MG/0.8 ML SYG SC (20:50)
[2018-11-12] MEDS: LEVETIRACETAM 500 MG TAB PO (20:51)
[2018-11-13] MEDS: POTASSIUM CHLORIDE 100 ML IVPB ×2 (01:33→05:02)
[2018-11-13] MEDS: HYDROCODONE/APAP (5/325) TAB PO ×2 (01:40→21:50)
[2018-11-13 02:23] LABS: CREATINE KINASE 275 IU/L (23-200)
[2018-11-13 02:36] LABS: CK INDEX 0.8
[2018-11-13 02:37] LABS: TROPONIN-I 0.179 ng/ml (0.000-0.120)
[2018-11-13] MEDS: morphine 2 MG INJ IV ×2 (05:08→23:14)
[2018-11-13] MEDS: ASPIRIN (EC) 325 MG TAB PO (08:14)
[2018-11-13] MEDS: MULTIVIT/CA CARB/B CMPLX/FA TAB PO (08:14)
[2018-11-13] MEDS: LEVETIRACETAM 500 MG TAB PO ×2 (08:14→21:42)
[2018-11-13] MEDS: hydrALAzine 20 MG INJ IV ×2 (08:15→19:18)
[2018-11-13 08:59] LABS: ADD MAN DIFF? NO
[2018-11-13] MEDS: NICOTINE (14 MG/24 HR) PATCH TRANSDERM (09:00)
[2018-11-13 09:09] LABS: BASOPHILS % 0.5 % (0.0-2.0); EOSINOPHILS # 0.1 10^3/ul (0.0-0.5); EOSINOPHILS % 1.8 % (0.0-7.0); LYMPHOCYTES # 1.6 10^3/ul (0.8-2.9); LYMPHOCYTES % 40.4 % (15.0-51.0); MEAN CORPUSCULAR HEMOGLOBIN 24.7 pg (29.0-33.0); MEAN CORPUSCULAR HGB CONC 31.4 g/dl (32.0-37.0); MEAN CORPUSCULAR VOLUME 78.5 fl (82.0-101.0); MEAN PLATELET VOLUME 11.9 fl (7.4-10.4); MONOCYTE # 0.6 10^3/ul (0.3-0.9); MONOCYTES % 14.6 % (0.0-11.0); NEUTROPHIL # 1.6 10^3/ul (1.6-7.5); NEUTROPHILS % 42.4 % (39.0-77.0); PLATELET COUNT 196 10^3/UL (140-415); RED BLOOD COUNT 4.46 10^6/ul (4.70-6.10); RED CELL DISTRIBUTION WIDTH 15.9 % (11.5-14.5)
[2018-11-13 09:09] LABS: WHITE BLOOD COUNT 3.8 10^3/ul (4.8-10.8)
[2018-11-13 09:29] LABS: HEMOGLOBIN A1C 5.2 % (0-5.9)
[2018-11-13 09:52] LABS: CHOLESTEROL 171 mg/dl (100-200)
[2018-11-13 09:52] LABS: CHOL/HDL RATIO 2.5 RATIO; HDL CHOLESTEROL 66 mg/dl (28-63); LDL CHOLESTEROL,CALCULATED 90 mg/dl; TRIGLYCERIDES 73 mg/dl (0-149)
[2018-11-13 09:54] LABS: ANION GAP 7 (5-13); BLOOD UREA NITROGEN 42 mg/dl (7-20); CALCIUM 8.9 mg/dl (8.4-10.2); CARBON DIOXIDE 28 mmol/L (21-31); CHLORIDE 103 mmol/L (97-110); CREATININE 4.75 mg/dl (0.61-1.24); Estimated GFR 17 mL/min (>60); GLUCOSE 72 mg/dl (70-220); PHOSPHORUS 4.4 mg/dl (2.5-4.9); POTASSIUM 3.5 mmol/L (3.5-5.1); SODIUM 138 mmol/L (135-144)
[2018-11-13] MEDS: ENOXAPARIN 80 MG/0.8 ML SYG SC (22:21)
[2018-11-13] MEDS: SOD CHLORIDE 0.45% 1,000 ML IV ×2 (23:59)
[2018-11-14] MEDS: SOD CHLORIDE 0.9% 250 ML IV (00:45)
[2018-11-14] MEDS: hydrALAzine 20 MG INJ IV ×2 (02:09→08:38)
[2018-11-14] MEDS: morphine 2 MG INJ IV (06:36)
[2018-11-14 08:10] LABS: ADD MAN DIFF? NO
[2018-11-14 08:18] LABS: WHITE BLOOD COUNT 4.3 10^3/ul (4.8-10.8)
[2018-11-14 08:18] LABS: ABNORMAL IP MESSAGE 1; BASOPHILS % 0.5 % (0.0-2.0); EOSINOPHILS # 0.1 10^3/ul (0.0-0.5); EOSINOPHILS % 1.4 % (0.0-7.0); HEMATOCRIT 35.5 % (42.0-52.0); HEMOGLOBIN 11.2 g/dl (14.0-18.0); LYMPHOCYTES # 1.4 10^3/ul (0.8-2.9); LYMPHOCYTES % 33.1 % (15.0-51.0); MEAN CORPUSCULAR HEMOGLOBIN 24.6 pg (29.0-33.0); MEAN CORPUSCULAR HGB CONC 31.5 g/dl (32.0-37.0); MEAN PLATELET VOLUME 11.8 fl (7.4-10.4); MONOCYTE # 0.6 10^3/ul (0.3-0.9); MONOCYTES % 14.2 % (0.0-11.0); NEUTROPHIL # 2.2 10^3/ul (1.6-7.5); NEUTROPHILS % 50.6 % (39.0-77.0); PLATELET COUNT 181 10^3/UL (140-415); POSITIVE DIFF @See below; RED BLOOD COUNT 4.55 10^6/ul (4.70-6.10); RED CELL DISTRIBUTION WIDTH 15.8 % (11.5-14.5)
[2018-11-14] MEDS: MULTIVIT/CA CARB/B CMPLX/FA TAB PO (08:38)
[2018-11-14] MEDS: ASPIRIN (EC) 325 MG TAB PO (08:38)
[2018-11-14] MEDS: LEVETIRACETAM 500 MG TAB PO ×2 (08:38→20:11)
[2018-11-14] MEDS: NICOTINE (14 MG/24 HR) PATCH TRANSDERM (08:41)
[2018-11-14] MEDS: HYDROCODONE/APAP (5/325) TAB PO ×2 (08:46→21:21)
[2018-11-14] MEDS: SOD CHLORIDE 0.45% 1,000 ML IV (08:47)
[2018-11-14 08:50] LABS: CHOL/HDL RATIO 2.8 RATIO; CREATINE KINASE 177 IU/L (23-200); HDL CHOLESTEROL 61 mg/dl (28-63); LDL CHOLESTEROL,CALCULATED 91 mg/dl; TRIGLYCERIDES 96 mg/dl (0-149)
[2018-11-14 08:50] LABS: CHOLESTEROL 171 mg/dl (100-200)
[2018-11-14 08:58] LABS: ANION GAP 9 (5-13); BLOOD UREA NITROGEN 46 mg/dl (7-20); CALCIUM 8.9 mg/dl (8.4-10.2); CARBON DIOXIDE 27 mmol/L (21-31); CHLORIDE 102 mmol/L (97-110); Estimated GFR 18 mL/min (>60); GLUCOSE 76 mg/dl (70-220); SODIUM 138 mmol/L (135-144)
[2018-11-14 09:00] LABS: CK INDEX 0.7; CK-MB 1.29 ng/ml (0.0-2.4)
[2018-11-14 09:01] LABS: TROPONIN-I 0.136 ng/ml (0.000-0.120)
[2018-11-14] MEDS: POTASSIUM CHLORIDE (SR) 20 MEQ TAB PO (09:46)
[2018-11-14 13:48] LABS: ADD UMIC YES; UR ASCORBIC ACID NEGATIVE (NEGATIVE); UR BILIRUBIN (Dip) NEGATIVE (NEGATIVE); UR BLOOD (Dip) NEGATIVE (NEGATIVE); UR CLARITY CLEAR (CLEAR); UR COLOR COLORLESS (YELLOW); UR GLUCOSE (Dip) NEGATIVE (NEGATIVE); UR KETONES (Dip) NEGATIVE (NEGATIVE); UR LEUKOCYTE ESTERASE (Dip) NEGATIVE Leu/ul (NEGATIVE); UR NITRITE (Dip) NEGATIVE (NEGATIVE); UR RBC 3 /HPF (0-5); UR SPECIFIC GRAVITY (Dip) 1.006 (1.003-1.030); UR TOTAL PROTEIN (Dip) 2+ mg/dl (NEGATIVE); UR UROBILINOGEN (Dip) NEGATIVE (NEGATIVE); UR WBC 0 /HPF (0-5)
[2018-11-14 13:54] LABS: CREATININE,URINE RANDOM 38.68 mg/dl (20-370); PROTEIN/CREAT RATIO 4.26 RATIO
[2018-11-14 16:43] LABS: POTASSIUM 3.5 mmol/L (3.5-5.1)
[2018-11-14] MEDS: ENOXAPARIN 80 MG/0.8 ML SYG SC (20:37)
[2018-11-15] MEDS: hydrALAzine 20 MG INJ IV ×2 (04:27→09:58)
[2018-11-15] MEDS: HYDROCODONE/APAP (5/325) TAB PO ×2 (04:30→21:12)
[2018-11-15 07:33] LABS: ADD MAN DIFF? NO
[2018-11-15 07:42] LABS: WHITE BLOOD COUNT 3.3 10^3/ul (4.8-10.8)
[2018-11-15 07:42] LABS: BASOPHILS % 0.6 % (0.0-2.0); EOSINOPHILS # 0.1 10^3/ul (0.0-0.5); EOSINOPHILS % 2.7 % (0.0-7.0); HEMATOCRIT 34.2 % (42.0-52.0); HEMOGLOBIN 10.6 g/dl (14.0-18.0); LYMPHOCYTES # 1.3 10^3/ul (0.8-2.9); LYMPHOCYTES % 40.3 % (15.0-51.0); MEAN CORPUSCULAR HEMOGLOBIN 24.4 pg (29.0-33.0); MEAN CORPUSCULAR VOLUME 78.6 fl (82.0-101.0); MEAN PLATELET VOLUME 12.1 fl (7.4-10.4); MONOCYTE # 0.6 10^3/ul (0.3-0.9); MONOCYTES % 18.5 % (0.0-11.0); NEUTROPHIL # 1.3 10^3/ul (1.6-7.5); NEUTROPHILS % 37.9 % (39.0-77.0); PLATELET COUNT 165 10^3/UL (140-415); RED BLOOD COUNT 4.35 10^6/ul (4.70-6.10)
[2018-11-15 08:04] LABS: CREATINE KINASE 144 IU/L (23-200)
[2018-11-15 08:14] LABS: CK INDEX 0.9; CK-MB 1.25 ng/ml (0.0-2.4); TROPONIN-I 0.108 ng/ml (0.000-0.120)
[2018-11-15 08:15] LABS: ANION GAP 8 (5-13); BLOOD UREA NITROGEN 50 mg/dl (7-20); CALCIUM 8.8 mg/dl (8.4-10.2); CARBON DIOXIDE 27 mmol/L (21-31); CHLORIDE 102 mmol/L (97-110); Estimated GFR 16 mL/min (>60); GLUCOSE 73 mg/dl (70-220); POTASSIUM 3.4 mmol/L (3.5-5.1); SODIUM 137 mmol/L (135-144)
[2018-11-15] MEDS: NICOTINE (14 MG/24 HR) PATCH TRANSDERM (09:00)
[2018-11-15] MEDS: ASPIRIN (EC) 325 MG TAB PO (09:55)
[2018-11-15] MEDS: MULTIVIT/CA CARB/B CMPLX/FA TAB PO (09:55)
[2018-11-15] MEDS: LEVETIRACETAM 500 MG TAB PO ×2 (09:55→21:08)
[2018-11-15] MEDS: POTASSIUM CHLORIDE (SR) 20 MEQ TAB PO (10:31)
[2018-11-15] MEDS: AMLODIPINE 5 MG TAB PO ×2 (10:31→21:09)
[2018-11-15] MEDS: ENOXAPARIN 80 MG/0.8 ML SYG SC (21:34)
[2018-11-15] MEDS: morphine 2 MG INJ IV (23:00)
[2018-11-16] MEDS: HYDROCODONE/APAP (5/325) TAB PO (03:10)
[2018-11-16] MEDS: hydrALAzine 20 MG INJ IV (03:11)
[2018-11-16] MEDS: morphine 2 MG INJ IV ×2 (04:36→08:37)
[2018-11-16 06:24] LABS: ADD MAN DIFF? NO
[2018-11-16 06:35] LABS: BASOPHILS % 0.6 % (0.0-2.0); EOSINOPHILS # 0.1 10^3/ul (0.0-0.5); EOSINOPHILS % 2.8 % (0.0-7.0); HEMATOCRIT 34.9 % (42.0-52.0); HEMOGLOBIN 10.9 g/dl (14.0-18.0); LYMPHOCYTES # 1.4 10^3/ul (0.8-2.9); LYMPHOCYTES % 39.5 % (15.0-51.0); MEAN CORPUSCULAR HEMOGLOBIN 24.5 pg (29.0-33.0); MEAN CORPUSCULAR HGB CONC 31.2 g/dl (32.0-37.0); MEAN CORPUSCULAR VOLUME 78.4 fl (82.0-101.0); MONOCYTE # 0.6 10^3/ul (0.3-0.9); MONOCYTES % 15.7 % (0.0-11.0); NEUTROPHIL # 1.5 10^3/ul (1.6-7.5); NEUTROPHILS % 41.4 % (39.0-77.0); PLATELET COUNT 167 10^3/UL (140-415); RED BLOOD COUNT 4.45 10^6/ul (4.70-6.10); RED CELL DISTRIBUTION WIDTH 15.9 % (11.5-14.5)
[2018-11-16 06:35] LABS: WHITE BLOOD COUNT 3.6 10^3/ul (4.8-10.8)
[2018-11-16 07:03] LABS: ANION GAP 6 (5-13); BLOOD UREA NITROGEN 51 mg/dl (7-20); CALCIUM 8.9 mg/dl (8.4-10.2); CARBON DIOXIDE 31 mmol/L (21-31); CHLORIDE 101 mmol/L (97-110); CREATININE 4.71 mg/dl (0.61-1.24); Estimated GFR 18 mL/min (>60); GLUCOSE 91 mg/dl (70-220); POTASSIUM 3.5 mmol/L (3.5-5.1); SODIUM 138 mmol/L (135-144)
[2018-11-16] MEDS: ACETAMINOPHEN 325 MG TAB PO (07:35)
[2018-11-16 07:43] LABS: PHOSPHORUS 4.3 mg/dl (2.5-4.9)
[2018-11-16] MEDS: MULTIVIT/CA CARB/B CMPLX/FA TAB PO (08:35)
[2018-11-16] MEDS: AMLODIPINE 5 MG TAB PO (08:35)
[2018-11-16] MEDS: ASPIRIN (EC) 325 MG TAB PO (08:35)
[2018-11-16] MEDS: LEVETIRACETAM 500 MG TAB PO (08:36)
[2018-11-16] MEDS: NICOTINE (14 MG/24 HR) PATCH TRANSDERM (08:42)
[2018-11-16 08:51] LABS: IRON 28 ug/dl (35-150)
[2018-11-16 09:00] LABS: % IRON SATURATION 11 % SAT (22-52); TOTAL IRON BINDING CAPACITY 248 ug/dl (241-421)
[2018-11-16] MEDS: SOD FERRIC GLUC COMPLX 125 MG in SOD CHLORIDE 0.9% 100 ML IVPB (13:28)
== END 2018-11-16 15:00 | disposition home or self-care (01) | DRG 281 ==
LOC: TEL 17:45 → E/R 15:52
DX: I21.4 Non-ST elevation (NSTEMI) myocardial infarction (principal); I13.2 Hypertensive heart and chronic kidney disease with heart failure and with stage 5 chronic kidney disease, or end stage renal disease; N18.5 Chronic kidney disease, stage 5; N17.9 Acute kidney failure, unspecified; I16.1 Hypertensive emergency; I42.9 Cardiomyopathy, unspecified; F17.210 Nicotine dependence, cigarettes, uncomplicated; G40.909 Epilepsy, unspecified, not intractable, without status epilepticus; D63.1 Anemia in chronic kidney disease; I16.0 Hypertensive urgency; I50.9 Heart failure, unspecified; I25.2 Old myocardial infarction; Z95.5 Presence of coronary angioplasty implant and graft; Z82.49 Family history of ischemic heart disease and other diseases of the circulatory system; Z86.79 Personal history of other diseases of the circulatory system
CPT/HCPCS: 36415; 71045; 80048; 80061; 80307; 81001; 81003; 82533; 82550; 82553; 82570; 83036; 83540; 83735; 83880; 84100; 84132; 84439; 84443; 84484; 85025; 93005; 93306; 93976; 96365; 96375; 99285-25

== ENCOUNTER 2018-12-08 22:49 | Inpatient (IN) | payer OTHER ==
[2018-12-08 23:28] LABS: ADD MAN DIFF? NO
[2018-12-08 23:30] LABS: WHITE BLOOD COUNT 4.1 10^3/ul (4.8-10.8)
[2018-12-08 23:30] LABS: BASOPHILS % 0.7 % (0.0-2.0); EOSINOPHILS # 0.1 10^3/ul (0.0-0.5); EOSINOPHILS % 1.5 % (0.0-7.0); HEMATOCRIT 36.2 % (42.0-52.0); HEMOGLOBIN 11.5 g/dl (14.0-18.0); LYMPHOCYTES # 1.6 10^3/ul (0.8-2.9); LYMPHOCYTES % 37.6 % (15.0-51.0); MEAN CORPUSCULAR HEMOGLOBIN 24.6 pg (29.0-33.0); MEAN CORPUSCULAR HGB CONC 31.8 g/dl (32.0-37.0); MEAN CORPUSCULAR VOLUME 77.4 fl (82.0-101.0); MONOCYTE # 0.7 10^3/ul (0.3-0.9); NEUTROPHIL # 1.8 10^3/ul (1.6-7.5); PLATELET COUNT 200 10^3/UL (140-415); RED BLOOD COUNT 4.68 10^6/ul (4.70-6.10); RED CELL DISTRIBUTION WIDTH 15.3 % (11.5-14.5)
[2018-12-08 23:47] LABS: ANION GAP 10 (5-13); BLOOD UREA NITROGEN 47 mg/dl (7-20); CARBON DIOXIDE 25 mmol/L (21-31); CHLORIDE 102 mmol/L (97-110); CREATININE 5.75 mg/dl (0.61-1.24); Estimated GFR 14 mL/min (>60); GLUCOSE 87 mg/dl (70-220); SODIUM 137 mmol/L (135-144)
[2018-12-08 23:48] LABS: INR 0.88; PT RATIO 0.9
[2018-12-08] MEDS: ONDANSETRON 4 MG INJ IV (23:51)
[2018-12-08] MEDS: morphine 4 MG/ML VIAL IV (23:51)
[2018-12-08] MEDS: ASPIRIN 81 MG TAB PO (23:51)
[2018-12-08 23:58] LABS: B-TYPE NATRIURETIC PEPTIDE 9340 PG/ML (0-125); TROPONIN-I 0.082 ng/ml (0.000-0.120)
[2018-12-09] MEDS ORDERED: LEVETIRACETAM 1000 MG (PMX) 100 ML IVPB
[2018-12-09] MEDS: LEVETIRACETAM IV 1,000 MG in SOD CHLORIDE 0.9% 100 ML IV (00:01)
[2018-12-09] MEDS: morphine 4 MG/ML VIAL IV (01:23)
[2018-12-09] MEDS: ONDANSETRON 4 MG INJ IV (01:24)
[2018-12-09] MEDS ORDERED: ONDANSETRON 4 MG INJ IV (01:30)
[2018-12-09] MEDS ORDERED: ACETAMINOPHEN 325 MG TAB PO (01:30)
[2018-12-09] MEDS: METOPROLOL 5 MG INJ IV (01:41)
[2018-12-09] MEDS ORDERED: ALBUTEROL/IPRATROPIUM (NEB) 3 ML AMP HHN (03:00)
[2018-12-09] MEDS ORDERED: NACL 0.9% 3 ML SYG IV (03:00)
[2018-12-09] MEDS ORDERED: ALBUTEROL HFA 8 GM INHALER INH (03:00)
[2018-12-09] MEDS ORDERED: LORAZEPAM 2 MG INJ IV (03:00)
[2018-12-09] MEDS: FUROSEMIDE 40 MG TAB PO (08:05)
[2018-12-09] MEDS: LEVETIRACETAM 500 MG TAB PO ×2 (08:05→20:59)
[2018-12-09] MEDS: MULTIVIT/CA CARB/B CMPLX/FA TAB PO (08:05)
[2018-12-09] MEDS: ASPIRIN (EC) 81 MG TAB PO (08:05)
[2018-12-09] MEDS: AMLODIPINE 5 MG TAB PO ×2 (08:05→21:00)
[2018-12-09 08:28] LABS: ADD MAN DIFF? NO
[2018-12-09 08:48] LABS: WHITE BLOOD COUNT 3.7 10^3/ul (4.8-10.8)
[2018-12-09 08:48] LABS: BASOPHILS % 0.8 % (0.0-2.0); EOSINOPHILS # 0.1 10^3/ul (0.0-0.5); EOSINOPHILS % 2.9 % (0.0-7.0); HEMOGLOBIN 10.7 g/dl (14.0-18.0); LYMPHOCYTES # 1.6 10^3/ul (0.8-2.9); MEAN CORPUSCULAR HEMOGLOBIN 24.6 pg (29.0-33.0); MEAN CORPUSCULAR HGB CONC 31.5 g/dl (32.0-37.0); MEAN CORPUSCULAR VOLUME 78.2 fl (82.0-101.0); MEAN PLATELET VOLUME 11.7 fl (7.4-10.4); MONOCYTE # 0.6 10^3/ul (0.3-0.9); MONOCYTES % 17.1 % (0.0-11.0); NEUTROPHIL # 1.4 10^3/ul (1.6-7.5); NEUTROPHILS % 37.2 % (39.0-77.0); PLATELET COUNT 191 10^3/UL (140-415); RED BLOOD COUNT 4.35 10^6/ul (4.70-6.10); RED CELL DISTRIBUTION WIDTH 15.1 % (11.5-14.5)
[2018-12-09 09:16] LABS: CREATINE KINASE 185 IU/L (23-200)
[2018-12-09 09:25] LABS: CK INDEX 0.6; TROPONIN-I 0.085 ng/ml (0.000-0.120)
[2018-12-09 09:39] LABS: ALANINE AMINOTRANSFERASE 22 IU/L (13-69); ALBUMIN 3.2 g/dl (3.3-4.9); ALBUMIN/GLOBULIN RATIO 1.06; ALKALINE PHOSPHATASE 57 IU/L (42-121); ANION GAP 7 (5-13); ASPARTATE AMINO TRANSFERASE 20 IU/L (15-46); BLOOD UREA NITROGEN 48 mg/dl (7-20); CALCIUM 8.5 mg/dl (8.4-10.2); CARBON DIOXIDE 28 mmol/L (21-31); CHLORIDE 103 mmol/L (97-110); CREATININE 5.57 mg/dl (0.61-1.24); Estimated GFR 14 mL/min (>60); GLUCOSE 107 mg/dl (70-220); MAGNESIUM 2.3 mg/dl (1.7-2.5); SODIUM 138 mmol/L (135-144); TOTAL PROTEIN 6.2 g/dl (6.1-8.1)
[2018-12-09 10:09] LABS: IRON 55 ug/dl (35-150)
[2018-12-09 10:18] LABS: % IRON SATURATION 22 % SAT (22-52); TOTAL IRON BINDING CAPACITY 245 ug/dl (241-421)
[2018-12-09 11:27] LABS: CREATINE KINASE 170 IU/L (23-200)
[2018-12-09 11:38] LABS: CK INDEX 0.5; CK-MB 0.87 ng/ml (0.0-2.4); TROPONIN-I 0.073 ng/ml (0.000-0.120)
[2018-12-09 14:21] LABS: AMPHETAMINE/METHAMPHETAMINE NEGATIVE (NEGATIVE); BARBITURATES NEGATIVE (NEGATIVE); BENZODIAZEPINES NEGATIVE (NEGATIVE); CANNABINOIDS NEGATIVE (NEGATIVE); COCAINE NEGATIVE (NEGATIVE)
[2018-12-09 14:22] LABS: OPIATES POSITIVE (NEGATIVE)
[2018-12-09] MEDS: ACETAMINOPHEN 325 MG TAB PO (17:37)
[2018-12-09 20:35] LABS: SODIUM,URINE RANDOM 99 mmol/L (30-90)
[2018-12-09 20:35] LABS: CREATININE,URINE RANDOM 28.15 mg/dl (20-370)
[2018-12-09] MEDS: traMADol 50 MG TAB PO (23:55)
[2018-12-10] MEDS: KETOROLAC 30 MG INJ IV (04:20)
[2018-12-10] MEDS: hydrALAzine 20 MG INJ IV (04:20)
[2018-12-10] MEDS: traMADol 50 MG TAB PO ×2 (05:39→21:11)
[2018-12-10 06:33] LABS: ADD UMIC YES; UR ASCORBIC ACID NEGATIVE (NEGATIVE); UR BILIRUBIN (Dip) NEGATIVE (NEGATIVE); UR BLOOD (Dip) NEGATIVE (NEGATIVE); UR CLARITY CLEAR (CLEAR); UR COLOR YELLOW (YELLOW); UR GLUCOSE (Dip) NEGATIVE (NEGATIVE); UR KETONES (Dip) NEGATIVE (NEGATIVE); UR LEUKOCYTE ESTERASE (Dip) NEGATIVE Leu/ul (NEGATIVE); UR MUCUS MANY /HPF (NONE SEEN); UR NITRITE (Dip) NEGATIVE (NEGATIVE); UR RBC 0 /HPF (0-5); UR SPECIFIC GRAVITY (Dip) 1.008 (1.003-1.030); UR SQUAMOUS EPITHELIAL CELL FEW /HPF (FEW); UR TOTAL PROTEIN (Dip) 3+ mg/dl (NEGATIVE); UR UROBILINOGEN (Dip) NEGATIVE (NEGATIVE); UR WBC 4 /HPF (0-5)
[2018-12-10 06:50] LABS: ADD MAN DIFF? NO
[2018-12-10 06:56] LABS: BASOPHILS % 0.6 % (0.0-2.0); EOSINOPHILS # 0.1 10^3/ul (0.0-0.5); HEMATOCRIT 34.3 % (42.0-52.0); LYMPHOCYTES # 1.2 10^3/ul (0.8-2.9); MEAN CORPUSCULAR HEMOGLOBIN 24.9 pg (29.0-33.0); MEAN CORPUSCULAR HGB CONC 32.1 g/dl (32.0-37.0); MEAN CORPUSCULAR VOLUME 77.8 fl (82.0-101.0); MEAN PLATELET VOLUME 11.5 fl (7.4-10.4); MONOCYTE # 0.6 10^3/ul (0.3-0.9); MONOCYTES % 16.1 % (0.0-11.0); NEUTROPHIL # 1.6 10^3/ul (1.6-7.5); NEUTROPHILS % 46.3 % (39.0-77.0); PLATELET COUNT 190 10^3/UL (140-415); RED BLOOD COUNT 4.41 10^6/ul (4.70-6.10); RED CELL DISTRIBUTION WIDTH 15.4 % (11.5-14.5)
[2018-12-10 06:56] LABS: WHITE BLOOD COUNT 3.5 10^3/ul (4.8-10.8)
[2018-12-10 07:31] LABS: ANION GAP 7 (5-13); BLOOD UREA NITROGEN 46 mg/dl (7-20); CALCIUM 8.5 mg/dl (8.4-10.2); CARBON DIOXIDE 28 mmol/L (21-31); CHLORIDE 101 mmol/L (97-110); CREATININE 5.42 mg/dl (0.61-1.24); Estimated GFR 15 mL/min (>60); GLUCOSE 89 mg/dl (70-220); MAGNESIUM 2.2 mg/dl (1.7-2.5); PHOSPHORUS 4.1 mg/dl (2.5-4.9); POTASSIUM 3.1 mmol/L (3.5-5.1); SODIUM 136 mmol/L (135-144)
[2018-12-10] MEDS: ASPIRIN (EC) 81 MG TAB PO (08:07)
[2018-12-10] MEDS: AMLODIPINE 5 MG TAB PO (08:07)
[2018-12-10] MEDS: MULTIVIT/CA CARB/B CMPLX/FA TAB PO (08:07)
[2018-12-10] MEDS: FUROSEMIDE 40 MG TAB PO (08:16)
[2018-12-10] MEDS: ACETAMINOPHEN 325 MG TAB PO (08:16)
[2018-12-10] MEDS: PHENYTOIN 1,000 MG in SOD CHLORIDE 0.9% 100 ML IV (09:06)
[2018-12-10] MEDS: ONDANSETRON 4 MG INJ IV (09:46)
[2018-12-10 14:18] LABS: PHENYTOIN (DILANTIN) < 3.0 ug/ml (10.0-20.0)
[2018-12-10] MEDS: NIFEdipine (XL) 60 MG TAB PO (21:11)
[2018-12-10] MEDS: PHENYTOIN 100 MG CAP PO (21:12)
[2018-12-11] MEDS: ONDANSETRON 4 MG INJ IV (01:06)
[2018-12-11] MEDS: ACETAMINOPHEN 325 MG TAB PO (01:07)
[2018-12-11 06:37] LABS: ADD MAN DIFF? NO
[2018-12-11] MEDS: traMADol 50 MG TAB PO (06:38)
[2018-12-11 06:47] LABS: WHITE BLOOD COUNT 3.7 10^3/ul (4.8-10.8)
[2018-12-11 06:47] LABS: BASOPHILS % 0.5 % (0.0-2.0); EOSINOPHILS # 0.1 10^3/ul (0.0-0.5); EOSINOPHILS % 2.2 % (0.0-7.0); LYMPHOCYTES # 1.1 10^3/ul (0.8-2.9); LYMPHOCYTES % 29.8 % (15.0-51.0); MEAN CORPUSCULAR HEMOGLOBIN 24.5 pg (29.0-33.0); MEAN CORPUSCULAR HGB CONC 31.6 g/dl (32.0-37.0); MEAN CORPUSCULAR VOLUME 77.6 fl (82.0-101.0); MEAN PLATELET VOLUME 11.4 fl (7.4-10.4); MONOCYTE # 0.6 10^3/ul (0.3-0.9); MONOCYTES % 14.8 % (0.0-11.0); NEUTROPHILS % 52.4 % (39.0-77.0); PLATELET COUNT 209 10^3/UL (140-415); RED CELL DISTRIBUTION WIDTH 15.3 % (11.5-14.5)
[2018-12-11 07:00] LABS: ANION GAP 7 (5-13); BLOOD UREA NITROGEN 43 mg/dl (7-20); CALCIUM 8.8 mg/dl (8.4-10.2); CARBON DIOXIDE 30 mmol/L (21-31); CHLORIDE 100 mmol/L (97-110); CREATININE 5.12 mg/dl (0.61-1.24); Estimated GFR 16 mL/min (>60); GLUCOSE 146 mg/dl (70-220); MAGNESIUM 2.1 mg/dl (1.7-2.5); PHOSPHORUS 3.8 mg/dl (2.5-4.9); SODIUM 137 mmol/L (135-144)
[2018-12-11 07:03] LABS: POTASSIUM 2.9 mmol/L (3.5-5.1)
[2018-12-11] MEDS: POTASSIUM CHLORIDE (SR) 20 MEQ TAB PO (07:24)
[2018-12-11] MEDS: MULTIVIT/CA CARB/B CMPLX/FA TAB PO (09:10)
[2018-12-11] MEDS: NIFEdipine (XL) 60 MG TAB PO (09:10)
[2018-12-11] MEDS: ASPIRIN (EC) 81 MG TAB PO (09:11)
[2018-12-11] MEDS: SPIRONOLACTONE 50 MG TAB PO (09:11)
[2018-12-11] MEDS: FUROSEMIDE 40 MG TAB PO (09:11)
[2018-12-11] MEDS: VALPROATE INJ 1,000 MG in SOD CHLORIDE 0.9% 100 ML IVPB (10:59)
[2018-12-11 12:43] LABS: POTASSIUM 3.5 mmol/L (3.5-5.1)
[2018-12-11 18:31] LABS: ALDOSTERONE 11 ng/dL
[2018-12-11] MEDS ORDERED: DIVALPROEX (ER) 500 MG TAB PO (21:00)
[2018-12-12 16:57] LABS: CREATININE, RANDOM URINE 29 mg/dL (20-320); MICROALBUMIN 34.3 mg/dL; MICROALBUMIN/CREATININE RATIO 1183 (<30)
[2018-12-13 09:42] LABS: RENIN, PLASMA 2.65 ng/mL/h (0.25-5.82)
== END 2018-12-11 17:55 | disposition left against medical advice (07) | DRG 100 ==
LOC: E/R 22:49 → TEL 12-09 01:17
DX: G40.909 Epilepsy, unspecified, not intractable, without status epilepticus (principal); I50.23 Acute on chronic systolic (congestive) heart failure; I13.0 Hypertensive heart and chronic kidney disease with heart failure and stage 1 through stage 4 chronic kidney disease, or unspecified chronic kidney disease; N18.4 Chronic kidney disease, stage 4 (severe); N17.9 Acute kidney failure, unspecified; I42.9 Cardiomyopathy, unspecified; D63.1 Anemia in chronic kidney disease; E87.6 Hypokalemia; F17.200 Nicotine dependence, unspecified, uncomplicated; I12.9 Hypertensive chronic kidney disease with stage 1 through stage 4 chronic kidney disease, or unspecified chronic kidney disease; R07.89 Other chest pain; Z91.14 Patient's other noncompliance with medication regimen; Z86.79 Personal history of other diseases of the circulatory system; Z79.82 Long term (current) use of aspirin
CPT/HCPCS: 36415; 70450; 71045; 80048; 80053; 80185; 80307; 81001; 81003; 82043; 82088; 82550; 82553; 83540; 83735; 83880; 84100; 84132; 84155; 84244; 84300; 84484; 85025; 85610; 93005; 93306; 96374; 96375; 99285-25

== ENCOUNTER 2018-12-14 13:59 | Inpatient (IN) | payer OTHER ==
[2018-12-14 15:03] LABS: ADD MAN DIFF? NO
[2018-12-14] MEDS: niCARdipine-NS 0.1MG/ML DRIP 200 ML IV ×4 (15:04→20:49)
[2018-12-14 15:05] LABS: BASOPHILS % 0.7 % (0.0-2.0); EOSINOPHILS % 0.7 % (0.0-7.0); HEMATOCRIT 38.7 % (42.0-52.0); HEMOGLOBIN 12.3 g/dl (14.0-18.0); LYMPHOCYTES # 1.2 10^3/ul (0.8-2.9); LYMPHOCYTES % 26.3 % (15.0-51.0); MEAN CORPUSCULAR HEMOGLOBIN 24.7 pg (29.0-33.0); MEAN CORPUSCULAR HGB CONC 31.8 g/dl (32.0-37.0); MEAN CORPUSCULAR VOLUME 77.9 fl (82.0-101.0); MEAN PLATELET VOLUME 10.8 fl (7.4-10.4); MONOCYTE # 0.6 10^3/ul (0.3-0.9); MONOCYTES % 13.7 % (0.0-11.0); NEUTROPHIL # 2.6 10^3/ul (1.6-7.5); NEUTROPHILS % 58.4 % (39.0-77.0); PLATELET COUNT 204 10^3/UL (140-415); RED BLOOD COUNT 4.97 10^6/ul (4.70-6.10); RED CELL DISTRIBUTION WIDTH 15.8 % (11.5-14.5)
[2018-12-14 15:05] LABS: WHITE BLOOD COUNT 4.5 10^3/ul (4.8-10.8)
[2018-12-14 15:26] LABS: ANION GAP 8 (5-13); BLOOD UREA NITROGEN 41 mg/dl (7-20); CALCIUM 9.2 mg/dl (8.4-10.2); CARBON DIOXIDE 29 mmol/L (21-31); CHLORIDE 104 mmol/L (97-110); CREATININE 5.49 mg/dl (0.61-1.24); ETHANOL < 10.0 mg/dl (0-0); Estimated GFR 15 mL/min (>60); GLUCOSE 92 mg/dl (70-220); POTASSIUM 3.3 mmol/L (3.5-5.1); SODIUM 141 mmol/L (135-144)
[2018-12-14 15:37] LABS: TROPONIN-I 0.084 ng/ml (0.000-0.120)
[2018-12-14 15:55] LABS: AMPHETAMINE/METHAMPHETAMINE Negative (NEGATIVE); BARBITURATES Negative (NEGATIVE); BENZODIAZEPINES Negative (NEGATIVE); CANNABINOIDS Negative (NEGATIVE); COCAINE Negative (NEGATIVE); OPIATES Negative (NEGATIVE)
[2018-12-14] MEDS: NITROGLYCERIN 2% 1 GM OINT PKT TD (16:51)
[2018-12-14] MEDS: ASPIRIN 81 MG TAB PO (16:51)
[2018-12-14] MEDS ORDERED: ONDANSETRON 4 MG INJ IV (19:30)
[2018-12-14] MEDS ORDERED: NACL 0.9% 3 ML SYG IV (19:30)
[2018-12-14] MEDS ORDERED: ZOLPIDEM 5 MG TAB PO (19:30)
[2018-12-14] MEDS ORDERED: DOCUSATE SODIUM 100 MG CAP PO (19:30)
[2018-12-14] MEDS: morphine 2 MG INJ IV ×2 (19:33→23:41)
[2018-12-14] MEDS: AMLODIPINE 5 MG TAB PO (20:07)
[2018-12-14] MEDS: HYDROCODONE/APAP (5/325) TAB PO (20:08)
[2018-12-14] MEDS: POTASSIUM CHLORIDE (SR) 20 MEQ TAB PO (20:13)
[2018-12-14] MEDS: LEVETIRACETAM 500 MG TAB PO (21:13)
[2018-12-14] MEDS ORDERED: niCARdipine 50 MG in SOD CHLORIDE 0.9% 480 ML IV (21:30)
[2018-12-14 22:27] LABS: CREATINE KINASE 257 IU/L (23-200)
[2018-12-14 22:41] LABS: CK INDEX 0.6; CK-MB 1.67 ng/ml (0.0-2.4); TROPONIN-I 0.118 ng/ml (0.000-0.120)
[2018-12-14] MEDS: ACETAMINOPHEN 325 MG TAB PO (23:41)
[2018-12-15] MEDS: HYDROCODONE/APAP (5/325) TAB PO ×2 (02:44→09:34)
[2018-12-15] MEDS: morphine 2 MG INJ IV (03:36)
[2018-12-15 05:18] LABS: ADD MAN DIFF? NO
[2018-12-15 05:29] LABS: WHITE BLOOD COUNT 4.3 10^3/ul (4.8-10.8)
[2018-12-15 05:29] LABS: BASOPHILS % 0.5 % (0.0-2.0); EOSINOPHILS # 0.1 10^3/ul (0.0-0.5); EOSINOPHILS % 1.8 % (0.0-7.0); HEMATOCRIT 37.1 % (42.0-52.0); HEMOGLOBIN 11.7 g/dl (14.0-18.0); LYMPHOCYTES # 1.7 10^3/ul (0.8-2.9); LYMPHOCYTES % 38.5 % (15.0-51.0); MEAN CORPUSCULAR HEMOGLOBIN 24.5 pg (29.0-33.0); MEAN CORPUSCULAR HGB CONC 31.5 g/dl (32.0-37.0); MEAN CORPUSCULAR VOLUME 77.6 fl (82.0-101.0); MEAN PLATELET VOLUME 11.1 fl (7.4-10.4); MONOCYTE # 0.6 10^3/ul (0.3-0.9); MONOCYTES % 14.3 % (0.0-11.0); NEUTROPHIL # 1.9 10^3/ul (1.6-7.5); NEUTROPHILS % 44.7 % (39.0-77.0); PLATELET COUNT 188 10^3/UL (140-415); RED BLOOD COUNT 4.78 10^6/ul (4.70-6.10); RED CELL DISTRIBUTION WIDTH 15.5 % (11.5-14.5)
[2018-12-15 05:43] LABS: CREATINE KINASE 222 IU/L (23-200)
[2018-12-15 05:54] LABS: ANION GAP 7 (5-13); BLOOD UREA NITROGEN 37 mg/dl (7-20); CALCIUM 8.7 mg/dl (8.4-10.2); CARBON DIOXIDE 28 mmol/L (21-31); CHLORIDE 103 mmol/L (97-110); CK INDEX 0.8; CK-MB 1.74 ng/ml (0.0-2.4); CREATININE 4.79 mg/dl (0.61-1.24); Estimated GFR 17 mL/min (>60); GLUCOSE 100 mg/dl (70-220); MAGNESIUM 2.1 mg/dl (1.7-2.5); PHOSPHORUS 3.3 mg/dl (2.5-4.9); POTASSIUM 3.2 mmol/L (3.5-5.1); SODIUM 138 mmol/L (135-144)
[2018-12-15 05:59] LABS: TROPONIN-I 0.122 ng/ml (0.000-0.120)
[2018-12-15] MEDS: AMLODIPINE 5 MG TAB PO (09:27)
[2018-12-15] MEDS: LEVETIRACETAM 500 MG TAB PO ×2 (09:28→20:30)
[2018-12-15] MEDS: FUROSEMIDE 40 MG TAB PO (09:28)
[2018-12-15] MEDS: MULTIVIT/CA CARB/B CMPLX/FA TAB PO (09:28)
[2018-12-15] MEDS: ASPIRIN (EC) 81 MG TAB PO (09:28)
[2018-12-15] MEDS: NICOTINE (14 MG/24 HR) PATCH TRANSDERM (09:29)
[2018-12-15] MEDS: POTASSIUM CHLORIDE 20 MEQ POWDER FOR ORAL SOLN PO (20:26)
[2018-12-15] MEDS: NIFEdipine (XL) 60 MG TAB PO (20:30)
[2018-12-16 05:30] LABS: ANION GAP 5 (5-13); BLOOD UREA NITROGEN 44 mg/dl (7-20); CALCIUM 8.9 mg/dl (8.4-10.2); CARBON DIOXIDE 26 mmol/L (21-31); CHLORIDE 105 mmol/L (97-110); CREATININE 5.45 mg/dl (0.61-1.24); Estimated GFR 15 mL/min (>60); GLUCOSE 116 mg/dl (70-220); POTASSIUM 3.4 mmol/L (3.5-5.1); SODIUM 136 mmol/L (135-144)
[2018-12-16] MEDS: HYDROCODONE/APAP (5/325) TAB PO ×2 (05:53→13:03)
[2018-12-16] MEDS: LEVETIRACETAM 500 MG TAB PO ×2 (08:06→20:07)
[2018-12-16] MEDS: morphine 2 MG INJ IV (08:06)
[2018-12-16] MEDS: MULTIVIT/CA CARB/B CMPLX/FA TAB PO (08:07)
[2018-12-16] MEDS: ASPIRIN (EC) 81 MG TAB PO (08:07)
[2018-12-16] MEDS: FUROSEMIDE 40 MG TAB PO (08:07)
[2018-12-16] MEDS: NIFEdipine (XL) 60 MG TAB PO (08:07)
[2018-12-16] MEDS: ENOXAPARIN 30 MG/0.3 ML SYG SC (08:08)
[2018-12-16] MEDS: NICOTINE (14 MG/24 HR) PATCH TRANSDERM (08:08)
[2018-12-17] MEDS: hydrALAzine 20 MG INJ IV ×4 (02:42→10:31)
[2018-12-17] MEDS: HYDROCODONE/APAP (5/325) TAB PO (05:13)
[2018-12-17] MEDS: NIFEdipine (XL) 90 MG TAB PO (05:37)
[2018-12-17 06:12] LABS: ANION GAP 8 (5-13); BLOOD UREA NITROGEN 55 mg/dl (7-20); CALCIUM 8.7 mg/dl (8.4-10.2); CARBON DIOXIDE 27 mmol/L (21-31); CHLORIDE 103 mmol/L (97-110); CREATININE 5.71 mg/dl (0.61-1.24); Estimated GFR 14 mL/min (>60); GLUCOSE 82 mg/dl (70-220); POTASSIUM 3.3 mmol/L (3.5-5.1); SODIUM 138 mmol/L (135-144)
[2018-12-17] MEDS: FUROSEMIDE 40 MG TAB PO (07:49)
[2018-12-17] MEDS: MULTIVIT/CA CARB/B CMPLX/FA TAB PO (07:49)
[2018-12-17] MEDS: LEVETIRACETAM 500 MG TAB PO (07:50)
[2018-12-17] MEDS: NICOTINE (14 MG/24 HR) PATCH TRANSDERM (07:50)
[2018-12-17] MEDS: ASPIRIN (EC) 81 MG TAB PO (07:50)
[2018-12-17] MEDS: ENOXAPARIN 30 MG/0.3 ML SYG SC (08:09)
[2018-12-17] MEDS ORDERED: NIFEdipine (XL) 90 MG TAB PO (09:00)
[2018-12-17] MEDS: LABETALOL 100 MG TAB PO (10:31)
[2018-12-17] MEDS ORDERED: AMLODIPINE 10 MG TAB PO (21:00)
[2018-12-18 22:32] LABS: ALDOSTERONE 39 ng/dL
[2018-12-18 23:21] LABS: RENIN, PLASMA 4.94 ng/mL/h (0.25-5.82)
== END 2018-12-17 11:15 | disposition left against medical advice (07) | DRG 305 ==
LOC: MS1 12-16 06:15 → E/R 13:59 → ICU 17:06
DX: I16.0 Hypertensive urgency (principal); I42.9 Cardiomyopathy, unspecified; I25.10 Atherosclerotic heart disease of native coronary artery without angina pectoris; Z95.5 Presence of coronary angioplasty implant and graft; I12.9 Hypertensive chronic kidney disease with stage 1 through stage 4 chronic kidney disease, or unspecified chronic kidney disease; N18.9 Chronic kidney disease, unspecified; E87.6 Hypokalemia; R51 Headache; D64.9 Anemia, unspecified; G40.909 Epilepsy, unspecified, not intractable, without status epilepticus; F17.200 Nicotine dependence, unspecified, uncomplicated; Z53.21 Procedure and treatment not carried out due to patient leaving prior to being seen by health care provider; Z91.19 Patient's noncompliance with other medical treatment and regimen; Z79.82 Long term (current) use of aspirin
CPT/HCPCS: 36415; 71045; 80048; 80307; 82088; 82550; 82553; 83735; 84100; 84244; 84484; 85025; 87081; 93005; 96374; 99285-25